=== PATIENT | female | born 1935 | race Caucasian/White ===

== ENCOUNTER → 2016-06-17 | Outpatient (CLI) | payer MEDICARE ==
[2016-04-12 12:00] VITALS: BP 97/55
[~2016-06-17] MED LIST: AMLO2.5T PO; AMLO5TAB4 PO; ASCO100065 PO; ASPI81TA2 PO; ASPI81TA9 PO; ATOR40TA59 PO; CALC600T4 PO; CHOL20003 PO; FLAX1CAP PO; FURO20TA3 PO; HYDR50TA6 PO; LOSA50TA6 PO; METO50TA2 PO; OMEGA Q PLUS; POTA10TA12 PO; TICA90TA PO; VITA1CAP PO
--- NOTE | 2016-06-17 11:56 | CARD ---
APPROVED REPORT EXAM: Two-dimensional and M-mode echocardiogram with Doppler and color Doppler. Other Information Quality : GoodHR: 60bpm Rhythm : NSR INDICATION Ischemic cardiomyopathy 2D DIMENSIONS RVDd2.5 (2.9-3.5cm)Left Atrium(2D)3.3 (1.6-4.0cm) IVSd1.0 (0.7-1.1cm)Aortic Root(2D)2.5 (2.0-3.7cm) LVDd5.6 (3.9-5.9cm)LVOT Diameter2.0 (1.8-2.4cm) PWd0.9 (0.7-1.1cm)LVDs4.6 (2.5-4.0cm) FS (%) 17.6 %SV55.1 ml LVEF(%)36.2 (>50%) Aortic Valve AoV Peak Ankur.134.6cm/sAoV VTI28.4cm AO Peak GR.7.2mmHgLVOT Peak Ankur.116.8cm/s AO Mean GR.4mmHgAVA (VMAX)2.73cm2 Mitral Valve MV E Vpnecqvv95.1cm/sMV E Peak Gr.3mmHg MV DECEL [id number] A Ebkpfgmj18.8cm/s MV E Mean Gr.1mmHgE/A Ratio0.5 MV A Kwykfdct421po Pulmonary Valve PV Peak Yarhouhz43.1cm/s Tricuspid Valve TR P. Kvksnaxq354nb/sTR Peak Gr.21mmHg Pulmonary Vein S1 Zqkztlse02.9cm/sD2 Afbtvpys63.2cm/s PVa qjctuwfb60fpcf LEFT VENTRICLE The left ventricle is normal size. There is normal left ventricular wall thickness. Left ventricle sy stolic function is low normal. The Ejection Fraction is 50%. There is severe hypokinesis in the mid-a nteroseptal, apical septal mid and inferoseptal larios. All other larios contract normally. Transmitral Doppler flow pattern is Grade I-abnormal relaxation pattern. No left ventricle thrombus noted on thi s study. RIGHT VENTRICLE The right ventricle is normal size. There is normal right ventricular wall thickness. The right ventr icular systolic function is normal. ATRIA The left atrium is mildly dilated. The right atrium size is normal. The interatrial septum is intact with no evidence for an atrial septal defect or patent foramen ovale as noted on 2-D or Doppler imagi ng. AORTIC VALVE The aortic valve is mildly thickened without significant stenosis. Doppler and Color Flow revealed tr jose juan aortic regurgitation. There is no significant aortic valvular stenosis. MITRAL VALVE The mitral valve leaflets are thickened without significant stenosis. There is no evidence of mitral valve prolapse. Doppler and Color Flow revealed mild mitral regurgitation. TRICUSPID VALVE The tricuspid valve is normal in structure and function. Doppler and Color Flow revealed mild tricusp id regurgitation. The pulmonary artery systolic pressure is estimated at 26 mmHg. There is no tricusp id valve stenosis. PULMONIC VALVE Doppler and Color Flow revealed no pulmonic valvular regurgitation. GREAT VESSELS The aortic root is normal in size. The ascending aorta is normal in size. The IVC is normal in size a nd collapses >50% with inspiration. PERICARDIAL EFFUSION There is no evidence of significant pericardial effusion. Critical Notification Critical Value: No <Conclusion> Left ventricle systolic function is low normal. The Ejection Fraction is 50%. There is severe hypokinesis in the mid-anteroseptal, apical septal mid and inferoseptal larios. All ot her larios contract normally.
== END | disposition home or self-care (01) ==
LOC: ECHO 09:52
PROVIDERS: ATTEND Internal Medicine Cardiovascular Disease
DX: I25.5 Ischemic cardiomyopathy (principal); I34.0 Nonrheumatic mitral (valve) insufficiency
CPT/HCPCS: 93306

== ENCOUNTER → 2018-04-27 | Outpatient (CLI) | payer MEDICARE ==
[2016-04-12 12:00] VITALS: BP 97/55
[~2018-04-27] MED LIST changes: -AMLO2.5T PO; +AMLO2.5T3 PO; +ASPI-612 PO; +ASPI-630 PO; -ASPI81TA2 PO; -ASPI81TA9 PO; -CHOL20003 PO; +CHOL20009 PO; +LOSA-73 PO; -LOSA50TA6 PO; -METO50TA2 PO; +METO50TA6 PO
--- NOTE | 2018-04-27 16:16 | CARD ---
MR#: [id number] Date of Study: 04/27/2018 Ordering Physician: JERRELL ARCEO, Referring Physician: JERRELL ARCEO, Tech: Charu Anderson MARCELO APPROVED REPORT EXAM: Two-dimensional and M-mode echocardiogram with Doppler and color Doppler. Other Information Quality : GoodHR: 55bpm Rhythm : Bradycardia INDICATION CAD 2D DIMENSIONS RVDd3.4 (2.9-3.5cm)Left Atrium(2D)3.3 (1.6-4.0cm) IVSd1.6 (0.7-1.1cm)Aortic Root(2D)3.1 (2.0-3.7cm) LVDd4.0 (3.9-5.9cm)LVOT Diameter1.9 (1.8-2.4cm) PWd1.0 (0.7-1.1cm)LVDs2.3 (2.5-4.0cm) FS (%) 43.0 %SV52.6 ml LVEF(%)74.7 (>50%) M-Mode DIMENSIONS Left Atrium(MM)3.29 (2.5-4.0cm)Aortic Root3.64 (2.2-3.7cm) Aortic Valve AoV Peak Ankur.123.4cm/sAoV VTI30.1cm AO Peak GR.6.1mmHgLVOT Peak Ankur.89.5cm/s AO Mean GR.3mmHgAVA (VMAX)2.06cm2 NISSA (VTI)2.10cm2 Mitral Valve MV E Yuicrzdo42.2cm/sMV DECEL LHWQ704uw MV A Ecimjlhz569.1cm/sE/A Ratio0.9 MV A Lguhtaxd019zt Pulmonary Valve PV Peak Kgrjoaas19.0cm/s Tricuspid Valve TR P. Crsjnvfa196bn/sRAP NBINECKW0keIx TR Peak Gr.78gfIpYRAD03soOo Pulmonary Vein S1 Cuoalzse10.9cm/sD2 Eaaryzwz32.7cm/s PVa svrdfeon119qypm LEFT VENTRICLE The left ventricle is normal size. There is mild to moderate concentric left ventricular hypertrophy. The Ejection Fraction is estimated at 55-60%. Severe hypokinesis of mid to distal anteroseptal wall. Transmitral Doppler flow pattern is Grade II-pseudonormal filling dynamics. RIGHT VENTRICLE The right ventricle is normal size. There is normal right ventricular wall thickness. The right ventr icular systolic function is normal. ATRIA The left atrium size is normal. The right atrium size is normal. The interatrial septum is intact wit h no evidence for an atrial septal defect or patent foramen ovale as noted on 2-D or Doppler imaging. AORTIC VALVE The aortic valve is calcified but opens well. The aortic valve is trileaflet. Doppler and Color Flow revealed no significant aortic regurgitation. There is no significant aortic valvular stenosis. MITRAL VALVE The mitral valve is normal in structure and function. There is no evidence of mitral valve prolapse. There is no mitral valve stenosis. Doppler and Color-flow revealed trace mitral regurgitation. TRICUSPID VALVE The tricuspid valve is normal in structure and function. Doppler and Color Flow revealed trace tricus pid regurgitation. There is mild pulmonary hypertension. The PA pressure was estimated at 31 mmHg. Th ere is no tricuspid valve prolapse or vegetation. There is no tricuspid valve stenosis. PULMONIC VALVE The pulmonary valve is normal in structure and function. Doppler and Color Flow revealed no pulmonic valvular regurgitation. There is no pulmonic valvular stenosis. GREAT VESSELS The aortic root is normal in size. The ascending aorta is normal in size. The IVC is normal in size a nd collapses >50% with inspiration. PERICARDIAL EFFUSION There is no evidence of significant pericardial effusion. Critical Notification Critical Value: No <Conclusion> Severe hypokinesis of mid to distal anteroseptal wall. The Ejection Fraction is estimated at 55-60%. Transmitral Doppler flow pattern is Grade II-pseudonormal filling dynamics. Trace mitral regurgitation. Trace tricuspid regurgitation. The PA pressure was estimated at 31 mmHg. There is no evidence of significant pericardial effusion. Signed by : John Sutton, Electronically Approved : 04/27/2018 16:14:46
== END | disposition home or self-care (01) ==
LOC: ECHO 12:50
PROVIDERS: ATTEND Internal Medicine Cardiovascular Disease
DX: I25.10 Atherosclerotic heart disease of native coronary artery without angina pectoris (principal); I27.20 Pulmonary hypertension, unspecified; I51.7 Cardiomegaly
CPT/HCPCS: 93306

== ENCOUNTER → 2018-05-28 | Outpatient (CLI) | payer MEDICARE ==
[2016-04-12 12:00] VITALS: BP 97/55
[~2018-05-28] MED LIST changes: -AMLO2.5T3 PO; +AMLO2.5T5 PO
--- NOTE | 2018-05-29 10:21 | RAD ---
MR#: [id number] Date of Study: 05/28/2018 Ordering Physician: JERRELL ARCEO, Referring Physician: JERRELL ARCEO, Tech: BETH Kinney, RDMS, RTR APPROVED REPORT Bilateral Lower Extremity Venous Study for DVT Patient Location: OUT-PATIENT Indications Lower Extremity Pain: Lower Extremity Edema: Varicose Veins Risk Factors Obesity Medications Plavix Findings Grayscale images of the bilateral lower extremity common femoral, superficial femoral, popliteal vein s do not demonstrate any obvious evidence of thrombus. Spectral waveforms and color Doppler grossly w ithin normal limits. Below-knee veins are not well visualized but grossly appear to be without any ob vious thrombus on spectral images with spontaneous flow demonstrated. Incidental left groin lymph node measuring 3.1 x 0.7 x 1.2 cm is noted. Critical Notification Critical Value: No <Conclusion> 1. No evidence of DVT in the bilateral lower extremities. 2. Incidental left groin lymph node likely reactive in nature. Consider repeat u/s in 3 months Signed by : Jerrell Arceo, Electronically Approved : 05/29/2018 10:19:27
--- NOTE | 2018-05-31 16:39 | RAD ---
MR#: [id number] Date of Study: 05/28/2018 Ordering Physician: JERRELL ARCEO, Referring Physician: JERRELL ARCEO, Tech: BETH Kinney, RDMS, RTR APPROVED REPORT Patient Location : OUT-PATIENT Indications Lower Extremity Pain : Lower Extremity Edema : Varicose Veins Risk Factors Obesity Medications Plavix Findings BILAT SFJ'S POSITIVE FOR REFLUX RT AASV POSITIVE FOR REFLUX LT GSV PROX GSV POSITIVE FOR REFLUX RT CALF PERF POSITIVE FOR REFLUX UP 7CM BACK 5CM BILAT SSV'S NEGATIVE FOR REFLUX Critical Notification Critical Value: No <Conclusion> Complex reflux disease as noted above. Signed by : Jerrell Arceo, Electronically Approved : 05/31/2018 16:37:35
== END | disposition home or self-care (01) ==
LOC: US 12:31
PROVIDERS: ATTEND Internal Medicine Cardiovascular Disease
DX: I87.2 Venous insufficiency (chronic) (peripheral) (principal); I86.8 Varicose veins of other specified sites; E66.9 Obesity, unspecified
CPT/HCPCS: 93970

== ENCOUNTER → 2019-01-01 | Outpatient (CLI) | payer MEDICARE ==
[2016-04-12 12:00] VITALS: BP 97/55
--- NOTE | 2019-01-01 14:00 | CARD ---
MR#: [id number] Date of Study: 01/01/2019 Ordering Physician: SCOTT ROY, Referring Physician: SCOTT ROY, Tech: Cathy Batres RVT; Michael KURTZ APPROVED REPORT Patient StatusOUT-PATIENT Manager Of Care: Cathy Batres RVT; Michael Gonzalez CCNA;KAMI Procedure(s) performed: Endovenous Vena Seal ablation of the Right greater saphenous vein. INDICATION FOR PROCEDURE The indication(s) include : Symptomatic Chronic Venous Insufficiency with Varicose Veins, lower extre mity pain and edema. PROCEDURE NARRATIVE After explaining the risks, benefits and alternative options, informed consent was obtained from kathrine ent. Patient was brought to the procedure suite and duplex ultrasound was used to map out the insuffi cient saphenous vein. The access site was determined and marked on the overlying skin. The depth and diameter of the vein (s) to be treated was documented. The patient was placed supine on the procedure table and the leg was prepped and draped using sterile technique. Ultrasound guidance was again used to localize the access site. 1% lidocaine was injected into the sk in and subcutaneous tissues for local anesthesia. Using ultrasound guidance, access was obtained in t he saphenous vein with a 19-gauge thin-walled needle followed by introduction of a short guidewire. T he intraluminal location was confirmed with ultrasound and a 7 Rwandan 7 cm sheath was inserted into t he vein. A 0.035 inch guidewire from the Venaseal kit was then introduced and positioned at the saphe nofemoral junction using ultrasound guidance. The 80 cm 7 Rwandan introducer sheath/dilator was positi oned 5 cm from the saphenofemoral junction. The guidewire and dilator were removed and the remaining sheath was flushed with sterile saline, with the syringe remaining in place prior to the next steps. The Cyanoacrylate adhesive was loaded into a 3 cc syringe that was then attached to the 5F delivery c athter and loaded on to the Dispenser gun.The catheter was primed precisely and this 'assembly' was i ntroduced through the 7 Rwandan sheath and positioned 5 cm caudal to the saphenofemoral junction under ultrasound guidance. While applying compression cephalad to the cathter tip with the ultrasound auguste sducer, 0.10 cc of the VenaSeal adhesive was delivered into the vein by pulling the trigger of the MyMosa quinton gun. The catheter was pulled back 1 cm and another 0.10 cc of the adhesive was delivered foll owing which the catheter was pulled back 3 cm. Compression was applied over the vein for 3 minutes. T he catheter tip position was confirmed again using the ultrasound, 0.10 cc Venaseal adhesive delivere d, catheter pulled back 3 cm and compression applied for 30 seconds. These steps were repeated to tr eat the entire length of the incompetent vein. Following the last injection and compression sequence, the catheter and introducer sheath were pulled out from the access site. Hemostasis was achieved with manual compression and an adhesive bandage wa s applied to the incision. Ultrasound confirmed complete coaptation and closure of the treated segmen ts of the greater saphenous vein, and the absence of any DVT at the saphenofemoral junction. Treatmen t length was approximately 32 cm. The drapes were removed and the patient cleaned and prepared for discharge. Patient tolerated the pro cedure well. There were no immediate complications. Postop ultrasound check scheduled for 48-72 hours and the patient was given written postop instructions. Signed by : Scott Roy, Electronically Approved : 01/01/2019 14:00:00
== END ==
LOC: VNUS 12:05
PROVIDERS: ATTEND Internal Medicine Cardiovascular Disease
DX: I83.811 Varicose veins of right lower extremity with pain (principal)
CPT/HCPCS: 36482

== ENCOUNTER → 2019-03-18 | Outpatient (CLI) | payer MEDICARE ==
[2016-04-12 12:00] VITALS: BP 97/55
--- NOTE | 2019-03-18 14:47 | CARD ---
MR#: [id number] Date of Study: 03/18/2019 Ordering Physician: SCOTT SUTTON, Referring Physician: SCOTT SUTTON, Tech: Cathy Batres RVT; Michael HINTON APPROVED REPORT Patient StatusOUT-PATIENT Diazo Technician: Cathy Batres RVT; Michael COOLEY;KAMI Procedure(s) performed: Endovenous Venaseal ablation of the Left greater saphenous vein. INDICATION FOR PROCEDURE The indication(s) include : Symptomatic Chronic Venous Insufficiency with Varicose Veins, lower extre mity pain and edema. PROCEDURE NARRATIVE After explaining the risks, benefits and alternative options, informed consent was obtained from kathrine ent. Patient was brought to the procedure suite and duplex ultrasound was used to map out the insuffi cient saphenous vein. The access site was determined and marked on the overlying skin. The depth and diameter of the vein (s) to be treated was documented. The patient was placed supine on the procedure table and the leg was prepped and draped using sterile technique. Ultrasound guidance was again used to localize the access site. 1% lidocaine was injected into the sk in and subcutaneous tissues for local anesthesia. Using ultrasound guidance, access was obtained in t he saphenous vein with a 19-gauge thin-walled needle followed by introduction of a short guidewire. T he intraluminal location was confirmed with ultrasound and a 7 Italian 7 cm sheath was inserted into t he vein. A 0.035 inch guidewire from the Venaseal kit was then introduced and positioned at the saphe nofemoral junction using ultrasound guidance. The 80 cm 7 Italian introducer sheath/dilator was positi oned 5 cm from the saphenofemoral junction. The guidewire and dilator were removed and the remaining sheath was flushed with sterile saline, with the syringe remaining in place prior to the next steps. The Cyanoacrylate adhesive was loaded into a 3 cc syringe that was then attached to the 5F delivery c athter and loaded on to the Dispenser gun.The catheter was primed precisely and this 'assembly' was i ntroduced through the 7 Italian sheath and positioned 5 cm caudal to the saphenofemoral junction under ultrasound guidance. While applying compression cephalad to the cathter tip with the ultrasound auguste sducer, 0.10 cc of the VenaSeal adhesive was delivered into the vein by pulling the trigger of the ID Quant[employer] quinton gun. The catheter was pulled back 1 cm and another 0.10 cc of the adhesive was delivered foll owing which the catheter was pulled back 3 cm. Compression was applied over the vein for 3 minutes. T he catheter tip position was confirmed again using the ultrasound, 0.10 cc Venaseal adhesive delivere d, catheter pulled back 3 cm and compression applied for 30 seconds. These steps were repeated to tr eat the entire length of the incompetent vein. Following the last injection and compression sequence, the catheter and introducer sheath were pulled out from the access site. Hemostasis was achieved with manual compression and an adhesive bandage wa s applied to the incision. Ultrasound confirmed complete coaptation and closure of the treated segmen ts of the greater saphenous vein, and the absence of any DVT at the saphenofemoral junction. Treated length was 52 cm. The drapes were removed and the patient cleaned and prepared for discharge. Patient tolerated the pro cedure well. There were no immediate complications. Postop ultrasound check scheduled for 48-72 hours and the patient was given written postop instructions. Signed by : Scott Sutton, Electronically Approved : 03/18/2019 14:46:48
== END ==
LOC: VNUS 14:19
PROVIDERS: ATTEND Internal Medicine Cardiovascular Disease
DX: I83.812 Varicose veins of left lower extremity with pain (principal)
CPT/HCPCS: 36482

== ENCOUNTER → 2021-03-09 | Outpatient (CLI) | payer MEDICARE ==
[2016-04-12 12:00] VITALS: BP 97/55
[~2021-03-09] MED LIST changes: -ASPI-612 PO; +ASPI-886 PO; -CALC600T4 PO; +CALC600T60 PO; -HYDR50TA6 PO; +HYDR50TA9 PO; +POTA-116 PO; -POTA10TA12 PO
--- NOTE | 2021-03-10 14:55 | CARD ---
MR#: [id number] Date of Study: 03/09/2021 Ordering Physician: JERRELL ARCEO, Referring Physician: JERRELL ARCEO, Tech: Ivetet Morales [facility] APPROVED REPORT EXAM: Two-dimensional and M-mode echocardiogram with Doppler and color Doppler. Other Information Quality : AverageHR: 68bpm Rhythm : NSR INDICATION Cardiac Disease: CAD RISK FACTORS Hypertension Hyperlipidemia 2D DIMENSIONS Left Atrium(2D)3.6 (1.6-4.0cm)IVSd1.3 (0.7-1.1cm) Aortic Root(2D)3.2 (2.0-3.7cm)LVDd3.7 (3.9-5.9cm) LVOT Diameter1.9 (1.8-2.4cm)PWd1.2 (0.7-1.1cm) LVDs3.0 (2.5-4.0cm)FS (%) 17.8 % SV21.8 ml Aortic Valve AoV Peak Ankur.129.3cm/sAoV VTI29.3cm AO Peak GR.6.7mmHgLVOT Peak Ankur.109.9cm/s AO Mean GR.3mmHgAVA (VMAX)2.37cm2 Mitral Valve MV E Rvvhokuq32.9cm/sMV DECEL [id number] MV A Ddmxpmbr70.6cm/sE/A Ratio0.6 Tricuspid Valve TR P. Wfkuxunn569xx/sTR Peak Gr.26mmHg LEFT VENTRICLE The left ventricle is normal size. There is mild concentric left ventricular hypertrophy. Proximal se ptal thickening is noted. The left ventricular systolic function is normal and the ejection fraction is within normal range. LV ejection fraction is 50 to 55%. Regional wall motion abnormalities noted. Transmitral Doppler flow pattern is Grade I-abnormal relaxation pattern. RIGHT VENTRICLE The right ventricle is normal size. There is normal right ventricular wall thickness. The right ventr icular systolic function is normal. ATRIA The left atrium size is normal. The right atrium size is normal. The interatrial septum is intact wit h no evidence for an atrial septal defect or patent foramen ovale as noted on 2-D or Doppler imaging. AORTIC VALVE The aortic valve is normal in structure and function. Doppler and Color Flow revealed no significant aortic regurgitation. There is no significant aortic valvular stenosis. MITRAL VALVE The mitral valve is normal in structure and function. There is no evidence of mitral valve prolapse. There is no mitral valve stenosis. Doppler and Color-flow revealed mild mitral regurgitation. TRICUSPID VALVE The tricuspid valve is normal in structure and function. Doppler and Color Flow revealed mild tricusp id regurgitation. Estimated PAP 30 mmHg. There is no tricuspid valve stenosis. PULMONIC VALVE The pulmonary valve is normal in structure and function. Doppler and Color Flow revealed no pulmonic valvular regurgitation. GREAT VESSELS The aortic root is normal in size. The ascending aorta is normal in size. The IVC is normal in size a nd collapses >50% with inspiration. PERICARDIAL EFFUSION There is no evidence of significant pericardial effusion. Critical Notification Critical Value: No <Conclusion> The left ventricle is normal size. The left ventricular systolic function is normal and the ejection fraction is within normal range. LV ejection fraction is 50 to 55%. There is mild concentric left ventricular hypertrophy. Proximal septal thickening is noted. Doppler and Color Flow revealed no significant aortic regurgitation. There is no significant aortic valvular stenosis. Doppler and Color-flow revealed mild mitral regurgitation. Doppler and Color Flow revealed mild tricuspid regurgitation. Estimated PAP 30 mmHg. Signed by : Jose Miguel Cool MD Electronically Approved : 03/10/2021 14:55:08
== END ==
LOC: ECHO 10:56
PROVIDERS: ATTEND Internal Medicine Cardiovascular Disease
DX: I08.1 Rheumatic disorders of both mitral and tricuspid valves (principal); I25.10 Atherosclerotic heart disease of native coronary artery without angina pectoris; I10 Essential (primary) hypertension; E78.5 Hyperlipidemia, unspecified
CPT/HCPCS: 93306